=== PATIENT | female | born 1985 | race Caucasian/White ===

== ENCOUNTER 2021-07-21 12:39 | Outpatient (CLI) | payer BC, SELFPAY ==
--- NOTE | ~2021-07-21 | XR_ITS ---
XR wrist RT min 3V DATE: 07/21/2021 13:02 INDICATION: Lateral wrist pain. No injury. TECHNIQUE: 4 views COMPARISON: None FINDINGS: No fracture or dislocation, periosteal reaction or bone destruction. Joint spaces are prese rved. No erosive change or chondrocalcinosis. IMPRESSION: Negative Reviewed, dictated and finalized at location A. 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
== END 2021-07-21 12:40 | disposition home or self-care (01) ==
LOC: ANHIMG 12:43
PROVIDERS: PCP Internal Medicine; Visit Provider Internal Medicine
DX: M25.539 Pain in unspecified wrist (principal)
CPT/HCPCS: 73110

== ENCOUNTER 2023-01-07 10:06 | Emergency (ER) | payer OTHER, SELFPAY ==
[2023-01-07] VITALS (14 sets, daily range): BP systolic 114–142; BP diastolic 67–84; PULSE 45–90; RESP 11–22; TEMP 36.4; O2SAT 98–100
--- NOTE | ~2023-01-07 | XR_ITS ---
Clinical Indication: Chest pain AP and lateral views of the chest: Comparison: 11/13/2015 Findings: The lungs are clear, without evidence of focal consolidation or pleural effusion. Cardiome diastinal silhouette is within normal limits. Bones and soft tissues are unremarkable. Impression: Normal chest. Reviewed, dictated and finalized at location . Impression: Normal chest.
--- NOTE | 2023-01-07 10:09 | ECG_ITS ---
Measurements Intervals [place] Rate: 45 P: 65 VA: 135 QRS: 39 QRSD: 97 T: 27 QT: 467 QTc: 405 Interpretive Statements SINUS BRADYCARDIA WITH SINUS ARRHYTHMIA POSSIBLE LEFT ATRIAL ENLARGEMENT BORDERLINE T WAVE ABNORMALITY- ANTERIOR LEADS BASELINE ARTIFACT- I, II, III ABNORMAL ECG NO PREVIOUS ECG AVAILABLE FOR COMPARISON Electronically Signed On 01-07-2023 10:34:02 CDT by Beto Rendon D.O.
[2023-01-07 10:39] LABS: Basophils Percent Auto 1.2 % (0.2-1.2); Eosinophils Absolute Auto 0.1 K/mm3 (0-0.3); Eosinophils Percent Auto 2.1 % (0-4.4); Hematocrit 35.1 % (37.0-47.0); Hemoglobin 10.9 g/dL (12.0-15.0); Lymphocytes Absolute Auto 1.31 K/mm3 (0.9-3.2); Lymphocytes Percent Auto 38.8 % (18.3-44.2); Mean Corpuscular HGB Conc 31.1 g/dl (32-36); Mean Corpuscular Hemoglobin 21.7 pg (26-34); Mean Corpuscular Volume 69.9 fl (80-100); Mean Platelet Volume 10.7 fl (7.4-10.4); Monocytes Absolute Auto 0.3 K/mm3 (0.1-0.6); Monocytes Percent Auto 9.5 % (2.6-8.5); Neutrophils Absolute Auto 1.6 K/mm3 (1.3-6.7); Neutrophils Percent Auto 48.4 % (45.5-73.1); Platelet Count Result 295 k/mm3 (150-375); Red Blood Count 5.02 M/mm3 (4.2-5.4); Red Cell Distribution Width 15.9 % (11.5-14.5); White Blood Count 3.4 K/mm3 (4.5-10.0)
[2023-01-07 10:43] LABS: INR 0.9; Prothrombin Time 12.5 Seconds (11.1-14.7)
[2023-01-07 10:44] LABS: Partial Thromboplastin Time 29.1 SECONDS (22.3-36.8)
[2023-01-07 10:46] LABS: Alanine Aminotransferase 13 U/L (6-35); Albumin Level 4.3 g/dL (3.5-5.1); Alkaline Phosphatase 47 U/L (38-126); Anion Gap 0 mmol/L (8-16); Aspartate Amino Transferase 28 U/L (14-36); Bilirubin,Total 0.6 mg/dL (0.2-1.3); Blood Urea Nitrogen 9 mg/dL (7-17); Calcium 8.9 mg/dL (8.4-10.2); Carbon Dioxide 31 mmol/L (22-30); Chloride 105 mmol/L (98-107); Estimated CRCL calculation 64 ml/min; Estimated Glomerular Filt Rate > 60; Glucose 77 mg/dL (65-110); Lipase 43 U/L (23-300); Potassium 4.2 mmol/L (3.4-5.0); Sodium 136 mmol/L (137-145)
[2023-01-07] MEDS: ASPIRIN 81 MG CHEWABLE TABLET 324 MG PO (10:51)
[2023-01-07 10:57] LABS: Troponin I < 0.012 ng/mL (0.000-0.034)
[2023-01-07 11:08] LABS: Hypochromasia 1+ (NORMAL); Platelet Estimate Adequate (Adequate); Schistocytes None Seen (NORMAL); Target Cells 1+ (NORMAL)
--- NOTE | 2023-01-07 11:09 | ED.GENADULT ---
HPI - General Adult General Chief complaint: Chest Pain Stated complaint: CP Time Seen by Provider: 01/07/23 10:38 History of Present Illness HPI narrative: 37-year-old female with no significant past medical history presented the emergency department for evaluation of left-sided chest pain that radiates to her neck into her left arm. Patient states she has no prior history of CA CVA PE or DVT. Patient states that the chest pain started today. Patient states pain is worsened with inspiration. Patient denies any recent falls or injuries. Related Data Home Medications Medication Instructions Recorded Confirmed Lactobacillus 1 cap PO DAILY 08/10/19 10/24/21 acidophilus-Bifidobac.animalis 10 billion cell capsule (Digestive Probiotic) cetirizine 10 mg capsule (Zyrtec) 10 mg PO DAILY PRN 10/24/21 10/24/21 cholecalciferol (vitamin D3) 25 25 mcg PO DAILY 10/24/21 10/24/21 mcg (1,000 unit) capsule magnesium 30 mg tablet 30 mg PO DAILY 10/24/21 10/24/21 multivitamin 1 tablet PO DAILY 10/24/21 10/24/21 Allergies Allergy/AdvReac Type Severity Reaction Status Date / Time soy Allergy Severe Anaphylaxis Verified 01/07/23 10:43 Review of Systems Review of Systems: All systems reviewed & are unremarkable except as noted in HPI and below PMFSH Family History Family History Grandparent Family history of thyroid disease Malignant neoplasm of prostate Mother Hypertension Asthma Father Asthma Family history of diabetes mellitus in first degree relative Sibling Asthma Social History Social History Smoking status: Never smoker Second hand tobacco smoke exposure: No Alcohol intake: never Exam Narrative: APPEARANCE: Well appearing, no pain, no distress, well-nourished. HEAD: normocephalic, atraumatic. EYES: PERRLA/EOMI, conjunctivae clear. NOSE: Normal no drainage EARS:TMS clear with good light reflex. THROAT: Pharynx clear, no exudate. NECK: Supple. No adenopathy, no masses. RESPIRATORY: Airway patent, respirations nonlabored. Clear to auscultation bilaterally, no rales, rhonchi, wheezing. CARDIOVASCULAR: Regular rate and rhythm without murmurs rubs or gallops. ABDOMINAL: Soft, nontender, nondistended, normal bowel sounds MUSCULOSKELETAL: Moves all extremities. Strength/ROM intact, No edema, No calf tenderness. NEURO: Alert. Cranial nerves II through XII intact. SKIN: Warm, dry. Normal Color Course Course Emergency Course: 37-year-old female being evaluated for left-sided chest pain, patient's EKG shows sinus bradycardia with no evidence of acute ischemia. Patient was afebrile with no leukocytosis and hemoglobin of 10.9. Patient had no significant electrolyte abnormalities and patient had a negative initial troponin. Patient's repeat troponin was also negative. Patient had a negative D-dimer. Patient was encouraged of close follow-up with her primary care physician for additional outpatient cardiac testing. All questions and concerns were addressed. Vital Signs Vital signs: Vital Signs Temperature 97.6 F 01/07/23 10:31 Pulse Rate 90 01/07/23 10:31 Respiratory Rate 22 H 01/07/23 10:31 Blood Pressure 120/67 01/07/23 10:31 Pulse Oximetry 100 01/07/23 10:31 Oxygen Delivery Room Air 01/07/23 10:31 Temperature 97.6 F 01/07/23 10:31 Pulse Rate 47 L 01/07/23 14:30 Respiratory Rate 15 01/07/23 14:30 Blood Pressure 142/84 H 01/07/23 14:30 Pulse Oximetry 98 01/07/23 14:30 Oxygen Delivery Room Air 01/07/23 10:31 Medical Decision Making Differential Diagnosis Differential Diagnosis: Final Mal[place], pneumothorax, pneumonia, atypical chest pain, angina Vital Signs Vital Signs: Vital Signs Temperature 97.6 F 01/07/23 10:31 Pulse Rate 90 01/07/23 10:31 Respiratory Rate 22 H 01/07/23 10:31 Blood Pressure 120/67 01/07/23 10:31
[2023-01-07 11:55] LABS: D Dimer < 0.27 ug/mL (<0.48)
[2023-01-07 13:33] LABS: Troponin I 0.017 ng/mL (0.000-0.034)
== END 2023-01-07 14:39 | disposition home or self-care (01) ==
PROVIDERS: Emergency Provider Emergency Medicine; PCP Internal Medicine
DX: R07.89 Other chest pain (principal); R00.1 Bradycardia, unspecified; R94.31 Abnormal electrocardiogram [ECG] [EKG]
CPT/HCPCS: 36415; 71046; 80053; 83690; 84484; 85025; 85380; 85610; 85730; 93005; 99284; A9270

== ENCOUNTER 2023-07-22 00:55 | Emergency (ER) | payer OTHER, SELFPAY ==
--- NOTE | ~2023-07-22 | CT_ITS ---
CT of the Abdomen and Pelvis: Indication: Abdominal pain Technique: 2.5 mm axial scans were obtained through the abdomen and pelvis following intravenous adm inistration of 100 cc of Omnipaque 350. Dose reduction technique was used on this scan by utilizing a utomated exposure control and iterative reconstruction technique. The dose-length product (DLP) was 3 26.06 mGy-cm. Findings: Scans through the lung bases are unremarkable. The liver, spleen, pancreas, gallbladder, adrenals and kidneys are within normal limits. No evidence of aortic aneurysm. No lymphadenopathy. No bowel obstruction or bowel wall thickening. There is no evidence to suggest acute appendicitis. Images through the pelvis were performed. Urinary bladder unremarkable. No significant pelvic mass id entified. IUD in place. No ascites. Impression: No significant abnormalities seen. Reviewed, dictated and finalized at [facility]. 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
[2023-07-22 00:58] VITALS: BP 108/65; PULSE 71; RESP 14; TEMP 37.3; O2SAT 100
[2023-07-22 01:13] LABS: Appearance Urine Turbid (Clear); Bilirubin Urine Negative (Negative); Blood Urine 1+ (Negative); Color Urine Yellow (Yellow); Glucose Urine UA Negative (Negative); Ketones Urine Negative (Negative); Leukocyte Esterase Ur 2+ LEU/UL (Negative); Nitrate Urine Negative (Negative); Protein Urine 1+ mg/dL (Negative); Specific Grav Ur 1.015 (1.001-1.035); pH Urine 7.5 (5.0-9.0)
[2023-07-22 01:23] LABS: Add Urine Microscopic? YES
[2023-07-22 01:33] LABS: Bacteria Urine 4+ /hpf; Need Manual Microscopic Reviewed; Squamous Epithelial Cell Urine Many /hpf (Few); WBC Urine >100 /hpf
--- NOTE | 2023-07-22 02:42 | ED.GENADULT ---
HPI - General Adult General Chief complaint: Unspecified Stated complaint: UTI sx getting worse, fever, e coli Time Seen by Provider: 07/22/23 02:11 History of Present Illness HPI narrative: patient 38-year-old female presents emergency department with chief complaint of recurrent UTI. The patient reports she was diagnosed with the UTI at urgent care had urine cultures that showed pansensitive E coli patient reports that she has been taking Bactrim and has completed approximately 5 days worth of the antibiotic. The patient reports that she has started to have fevers again and having pain in her back patient reports that this not localizing to 1 side or the other patient reports she has felt a little nauseated but denies vomiting denies diarrhea. He Related Data Home Medications Medication Instructions Recorded Confirmed Lactobacillus 1 cap PO DAILY 08/10/19 10/24/21 acidophilus-Bifidobac.animalis 10 billion cell capsule (Digestive Probiotic) cetirizine 10 mg capsule (Zyrtec) 10 mg PO DAILY PRN 10/24/21 10/24/21 cholecalciferol (vitamin D3) 25 25 mcg PO DAILY 10/24/21 10/24/21 mcg (1,000 unit) capsule magnesium 30 mg tablet 30 mg PO DAILY 10/24/21 10/24/21 multivitamin 1 tablet PO DAILY 10/24/21 10/24/21 Allergies Allergy/AdvReac Type Severity Reaction Status Date / Time soy Allergy Severe Anaphylaxis Verified 07/22/23 01:09 Review of Systems Review of Systems: A 10 system review of systems was completed on the patient and is negative except for what is stated in the HPI. Nursing and ancillary documentation was reviewed. [facility] Family History Family History Grandparent Family history of thyroid disease Malignant neoplasm of prostate Mother Hypertension Asthma Father Asthma Family history of diabetes mellitus in first degree relative Sibling Asthma Social History Social History Smoking status: Never smoker Second hand tobacco smoke exposure: No Alcohol intake: never Exam Narrative: GENERAL: Well-appearing, well-nourished, and in no acute distress. HEAD: Normocephalic, atraumatic. EYES: PERRLA and EOMI. ENT: Nares clear, no rhinorrhea or epistaxis. Mucous membranes moist. NECK: Supple. CHEST: Clear to auscultation. No respiratory distress. HEART: Regular rate and rhythm. No murmur heard. Normal peripheral pulses. ABDOMEN: Soft, nontender, nondistended, normal active bowel sounds. negative CVA tenderness EXTREMITIES: Normal range of motion. No edema. SKIN: Warm, dry, no rash. NEURO: No focal deficits. Alert and oriented x3. PSYCH: Normal mood and affect. Course Vital Signs Vital signs: Vital Signs Temperature 37.3 C 07/22/23 00:58 Pulse Rate 71 07/22/23 00:58 Respiratory Rate 14 07/22/23 00:58 Blood Pressure 108/65 07/22/23 00:58 Pulse Oximetry 100 07/22/23 00:58 Oxygen Delivery Room Air 07/22/23 00:58 Temperature 37.3 C 07/22/23 00:58 Pulse Rate 80 07/22/23 04:15 Respiratory Rate 18 07/22/23 04:15 Blood Pressure 118/61 07/22/23 03:53 Pulse Oximetry 100 07/22/23 03:53 Oxygen Delivery Room Air 07/22/23 00:58 Medical Decision Making [facility] Narrative Medical decision making narrative: differential diagnosis includes pyelonephritis, ureterolithiasis, ovarian cyst, laboratory studies were obtained which showed a white count 2.7 hemoglobin was 11.4 electrolytes showed creatinine 1.1 lactic acid was 1.3 urinalysis shows turbid and greater than 100 white blood cells 2+ leukocyte esterase and 4+ bacteria patient received a L of normal saline in the emergency department and was given a dose of Rocephin while receiving the Rocephin the patient stated that she started to feel short of breath the Rocephin was discontinued and the patient will be transitioned to Cipro. Patient will be discharged h
[2023-07-22] MEDS: SODIUM CHLORIDE 0.9% IV 1,000 ML 999 ML IV CONT (03:19)
[2023-07-22 03:26] LABS: Basophils Percent Auto 0.4 % (0.2-1.2); Eosinophils Absolute Auto 0.1 K/mm3 (0-0.3); Eosinophils Percent Auto 2.3 % (0-4.4); Hematocrit 36.5 % (37.0-47.0); Hemoglobin 11.4 g/dL (12.0-15.0); Immature Granulocyte Absolute 0.02 K/mm3 (0.00-0.031); Immature Granulocyte Percent A 0.8 % (0-0.5); Lymphocytes Absolute Auto 0.35 K/mm3 (0.9-3.2); Lymphocytes Percent Auto 13.2 % (18.3-44.2); Mean Corpuscular HGB Conc 31.2 g/dl (32-36); Mean Corpuscular Hemoglobin 22.1 pg (26-34); Mean Corpuscular Volume 70.9 fl (80-100); Mean Platelet Volume 10.7 fl (7.4-10.4); Monocytes Absolute Auto 0.2 K/mm3 (0.1-0.6); Monocytes Percent Auto 9.1 % (2.6-8.5); Neutrophils Percent Auto 74.2 % (45.5-73.1); Platelet Count Result 267 k/mm3 (150-375); Red Blood Count 5.15 M/mm3 (4.2-5.4); Red Cell Distribution Width 15.8 % (11.5-14.5); White Blood Count 2.7 K/mm3 (4.5-10.0)
[2023-07-22 03:39] LABS: Lactic Acid Reflex 1.3 mmol/L (0.7-2.0)
--- NOTE | 2023-07-22 03:45 | PC.NURSE ---
Pt stated she is feeling short of breath. Pt O2 is 100% with bilateral clear lung sounds. MD aware.
[2023-07-22 03:53] VITALS: BP 118/61; PULSE 75; RESP 18; O2SAT 100
[2023-07-22 04:04] LABS: Alanine Aminotransferase 11 U/L (6-35); Albumin Level 3.7 g/dL (3.5-5.1); Alkaline Phosphatase 43 U/L (38-126); Anion Gap 7 mmol/L (8-16); Aspartate Amino Transferase 22 U/L (14-36); Bilirubin,Total 0.3 mg/dL (0.2-1.3); Blood Urea Nitrogen 8 mg/dL (7-17); Calcium 8.1 mg/dL (8.4-10.2); Carbon Dioxide 24 mmol/L (22-30); Chloride 106 mmol/L (98-107); Estimated CRCL calculation 54 ml/min; Estimated Glomerular Filt Rate 56; Glucose 90 mg/dL (65-110); Potassium 4.7 mmol/L (3.4-5.0); Sodium 137 mmol/L (137-145)
[2023-07-22] MEDS: IPRATROPIUM 0.5 MG/ALBUTEROL SULFATE 2.5 MG AMPUL.NEB 3 ML INHALATION (04:09)
[2023-07-22 04:10] VITALS: PULSE 77; RESP 18
[2023-07-22 04:15] VITALS: PULSE 80; RESP 18
[2023-07-22 04:34] LABS: Hypochromasia 1+ (NORMAL); Platelet Estimate Adequate (Adequate); Poikilocytosis 1+ (NORMAL)
[2023-07-22 04:35] LABS: Ovalocytes 1+ (NORMAL); Schistocytes None Seen (NORMAL); Target Cells 1+ (NORMAL)
[2023-07-22] MEDS: CIPROFLOXACIN 500 MG TAB PO (05:52)
[2023-07-22] MEDS: diphenhydrAMINE HCl INJ 50 MG/ML VIAL 25 MG IV PUSH (05:52)
== END 2023-07-22 06:06 | disposition home or self-care (01) ==
PROVIDERS: Emergency Provider Emergency Medicine
DX: N39.0 Urinary tract infection, site not specified (principal); B96.20 Unspecified Escherichia coli [E. coli] as the cause of diseases classified elsewhere; N83.209 Unspecified ovarian cyst, unspecified side; Z97.5 Presence of (intrauterine) contraceptive device
CPT/HCPCS: 36415; 74177; 80053; 81001; 81025; 83605; 85025; 87040; 87086; 94640; 96365; 96375; 99284; A9270; J0696; J1200; J7030; Q9967